=== PATIENT | female | born 1955 | race Caucasian/White ===

== ENCOUNTER → 2018-04-29 | Outpatient (CLI) | payer OTHER | END | disposition home or self-care (01) | LOC: NUCLEAR 07:30 | DX: K82.8 Other specified diseases of gallbladder (principal) | CPT/HCPCS: 78227; A9537; J2805 ==

== ENCOUNTER 2018-09-26 09:17 | Emergency (ER) | payer OTHER ==
[~2018-09-26] VITALS: Ht 154.9 cm; Wt 62.6 kg
[2018-09-26] MEDS ORDERED: FOSINOPRIL SODI20 MG PO (09:44)
[2018-09-26] MEDS ORDERED: SYNTHROID88 MCG PO (09:44)
[2018-09-26] MEDS ORDERED: JANUVIA100 MG PO (09:45)
[2018-09-26] MEDS ORDERED: NORFLEX100MG PO (14:58)
[2018-09-26] MEDS ORDERED: KETO10TA2 PO (14:58)
[2018-09-26] MEDS ORDERED: MEDROLPACK PO (14:58)
== END 2018-09-26 15:04 | disposition home or self-care (01) ==
LOC: ER 09:17
DX: M25.551 Pain in right hip (principal); M54.5 Low back pain; M79.661 Pain in right lower leg